=== PATIENT | female | born 1955 | race Caucasian/White ===

== ENCOUNTER 2018-07-27 15:56 | Observation (INO) | payer BC, OTHER ==
--- NOTE | 2018-07-27 16:11 | ERPHSYRPT ---
- History of Present Illness Time Seen by Provider: 07/27/18 16:06 Historian: patient Exam Limitations: no limitations Physician History: The patient is a 62-year-old female complaining of a sudden onset of chest pressure on the left side and left arm tingly feeling that began 20 minutes ago. She had significant chest pressure but now it seems to have dissipated completely. And she states "I'm getting the feeling back in my hand again". She was nauseated. She was slightly short of breath. She denies cough or chills. She has quit smoking. She states she had a heart attack 5 or 6 years ago. She no longer takes any of her prescription medicines because she does not have insurance. She has no local doctor. Her past medical history is significant for CAD, NH, HTN, high cholesterol, and asthma. Timing/Duration: today (20 mins ago) Activities at Onset: rest Quality: pressure Location: substernal Chest Pain Radiation: arm (left) Severity of Pain-Max: moderate Severity of Pain-Current: mild Modifying Factors: Improves With: nothing Associated Symptoms: nausea, shortness of breath, No vomiting Prior Chest Pain/Cardiac Workup: heart attack Nitro Today/Relief: 0.4 mg x 1, provided by ED Aspirin Treatment Today: 81 mg x 4, provided by ED Allergies/Adverse Reactions: codeine Allergy (Mild, Verified 07/24/14 13:52) Itching Home Medications: No Reportable Medications [No Reported Medications] 07/27/18 [History] Hx Tetanus, Diphtheria Vaccination/Date Given: No Hx Influenza Vaccination/Date Given: Yes Hx Pneumococcal Vaccination/Date Given: No - Review of Systems Constitutional: No Fever, No Chills Eyes: No Symptoms Ears, Nose, & Throat: No Symptoms Respiratory: Dyspnea, No Cough Cardiac: Chest Pain Abdominal/Gastrointestinal: Nausea, No Vomiting Genitourinary Symptoms: No Dysuria Musculoskeletal: No Back Pain, No Neck Pain Skin: No Rash Neurological: No Dizziness, No Focal Weakness, No Sensory Changes Psychological: No Symptoms Endocrine: No Symptoms Hematologic/Lymphatic: No Symptoms Immunological/Allergic: No Symptoms All Other Systems: Reviewed and Negative - Past Medical History Pertinent Past Medical History: Yes Cardiac History: Myocardial Infarction (NH) Respiratory History: Asthma Endocrine Medical History: Hypothyroidism - Past Surgical History Past Surgical History: Yes Gastrointestinal: Cholecystectomy Female Surgical History: Tubal Ligation - Social History Smoking Status: Former smoker Exposure to second hand smoke: No Drug Use: none Patient Lives Alone: No - Nursing Vital Signs Nursing Vital Signs: Initial Vital Signs Temperature 97.0 F 07/27/18 15:57 Pulse Rate 72 07/27/18 15:57 Respiratory Rate 20 07/27/18 15:57 Blood Pressure 154/111 07/27/18 15:57 O2 Sat by Pulse Oximetry 98 07/27/18 15:57 Pain Scale Pain Intensity 0 - Physical Exam General Appearance: no apparent distress, alert Eye Exam: PERRL/EOMI, eyes nml inspection Ears, Nose, Throat Exam: normal ENT inspection, moist mucous membranes Neck Exam: normal inspection, non-tender, supple, full range of motion Respiratory Exam: normal breath sounds, lungs clear, No respiratory distress Cardiovascular Exam: regular rate/rhythm, normal heart sounds Gastrointestinal/Abdomen Exam: soft, No tenderness, No mass Pelvic Exam: not done Rectal Exam: not done Back Exam: normal inspection, No CVA tenderness, No vertebral tenderness Extremity Exam: normal inspection, normal range of motion Neurologic Exam: alert, oriented x 3, cooperative, normal mood/affect, sensation nml, No motor deficits Skin Exam: normal color, warm, dry SpO2 Interpretation: normal SpO2: 98 Oxygen Delivery: Room Air - Course EKG Interpreted by Me: RATE, Sinus Rhythm, NORMAL AXIS, NORMAL INTERVALS, NORMAL QRS, NORMAL ST-T, Other (no change comp to EKG from 07/24/14.) - Radiology Exams Chest X-ray Interpretation: Interpreted by me, Infiltrates (bibasilar infiltrates; comp 2v chest 08/17/15.) Ordered Tests: Active Orders 24 hr Category Date Time Status Community Resource Consultant STAT Care 07/27/18 16:13 Active Clean Catch Urine Specimen STAT Care 07/27/18 16:12 Active EKG-ER Only STAT Care 07/27/18 16:12 Active IV Insertion STAT Care 07/27/18 16:12 Active Pulse Oximetry (ED) STAT Care 07/27/18 16:12 Active CHEST 2 VIEWS (PA AND LAT) Stat Exams 07/27/18 16:12 Taken CBC W DIFF Stat Lab 07/27/18 16:15 Completed CMP Stat Lab 07/27/18 16:15 Completed D-DIMER QUANTITATION Stat Lab 07/27/18 16:15 Completed NT PRO BNP Stat Lab 07/27/18 16:15 Completed PROTIME WITH INR Stat Lab 07/27/18 16:15 Completed TROPONIN Q3H Lab 07/27/18 16:15 Completed TROPONIN Q3H Lab 07/27/18 19:15 Ordered TROPONIN Q3H Lab 07/27/18 22:15 Ordered TROPONIN Q3H Lab 07/28/18 01:15 Ordered TROPONIN Q3H Lab 07/28/18 04:15 Ordered Urine Triage Profile Stat Lab 07/27/18 16:37 Received Medication Summary Discontinued Medications Generic Name Dose Route Start Last Admin Trade Name Freq PRN Reason Stop Dose Admin Aspirin 324 mg 07/27/18 16:12 07/27/18 16:21 Baby Aspirin 81 Mg Chew PO 07/27/18 16:13 324 mg STAT ONE Administration Aspirin Confirm 07/27/18 16:19 Baby Aspirin 81 Mg Chew Administered 07/27/18 16:20 Dose 324 mg .ROUTE .STK-MED ONE Nitroglycerin 0.4 mg 07/27/18 16:12 07/27/18 16:21 Nitrostat 0.4 Mg (Ed) SL 07/27/18 16:13 0.4 mg STAT ONE Administration Nitroglycerin Confirm 07/27/18 16:20 Nitrostat 0.4 Mg (Ed) Administered 07/27/18 16:21 Dose 0.4 mg SL .STK-MED ONE Ondansetron HCl 4 mg 07/27/18 16:12 07/27/18 16:21 Zofran 4 Mg/2 Ml Vial IV 07/27/18 16:13 4 mg STAT ONE Administration Ondansetron HCl Confirm 07/27/18 16:19 Zofran 4 Mg/2 Ml Vial Administered 07/27/18 16:20 Dose 4 mg .ROUTE .STK-MED ONE Lab/Rad Data: Laboratory Result Diagrams 07/27/18 16:15 07/27/18 16:15 Laboratory Results 07/27/18 07/27/18 07/27/18 Range/Units 16:15 16:15 16:15 WBC (4.0-10.5) K/mm3 RBC (4.1-5.4) M/mm3 Hgb (12.0-16.0) gm/dl Hct (35-47) % MCV (78-100) fl MCH (26-32) pg MCHC (32-36) g/dl RDW (11.5-14.0) % Plt Count (150-450) K/mm3 MPV (6-9.5) fl Gran % (36.0-66.0) % Eos # (Auto) (0-0.5) Absolute Lymphs (auto) (1.0-4.6) Absolute Monos (auto) (0.0-1.3) Lymphocytes % (24.0-44.0) % Monocytes % (0.0-12.0) % Eosinophils % (0.00-5.0) % Basophils % (0.0-0.4) % Absolute Granulocytes (1.4-6.9) Basophils # (0-0.4) PT 11.6 (9.95-12.35) SECONDS INR 1.00 (0.8-3.0) D-Dimer 472 (215-500) ng/mL Sodium 141 (137-145) mmol/L Potassium 3.8 (3.5-5.1) mmol/L Chloride 98 (98-107) mmol/L Carbon Dioxide 30 (22-30) mmol/L Anion Gap 17.3 H (5-15) MEQ/L BUN 12 (7-17) mg/dL Creatinine 1.66 H (0.52-1.04) mg/dL Estimated GFR 33.5 ML/MIN Glucose 105 (74-106) mg/dL Calcium 10.0 (8.4-10.2) mg/dL Total Bilirubin 1.10 (0.2-1.3) mg/dL AST 70 H (14-36) U/L ALT 38 H (0-35) U/L Alkaline Phosphatase 94 (38-126) U/L Troponin I < 0.012 (0.000-0.034) ng/mL NT-Pro-B Natriuret Pep 32.8 (0-900) pg/mL Serum Total Protein 9.1 H (6.3-8.2) g/dL Albumin 5.3 H (3.5-5.0) g/dL 07/27/18 Range/Units 16:15 WBC 9.9 (4.0-10.5) K/mm3 RBC 5.15 (4.1-5.4) M/mm3 Hgb 16.2 H (12.0-16.0) gm/dl Hct 48.2 H (35-47) % MCV 93.6 (78-100) fl MCH 31.4 (26-32) pg MCHC 33.6 (32-36) g/dl RDW 15.7 H (11.5-14.0) % Plt Count 197 (150-450) K/mm3 MPV 11.2 H (6-9.5) fl Gran % 46.2 (36.0-66.0) % Eos # (Auto) 0.16 (0-0.5) Absolute Lymphs (auto) 4.71 H (1.0-4.6) Absolute Monos (auto) 0.41 (0.0-1.3) Lymphocytes % 47.8 H (24.0-44.0) % Monocytes % 4.2 (0.0-12.0) % Eosinophils % 1.6 (0.00-5.0) % Basophils % 0.2 (0.0-0.4) % Absolute Granulocytes 4.55 (1.4-6.9) Basophils # 0.02 (0-0.4) PT (9.95-12.35) SECONDS INR (0.8-3.0) D-Dimer (215-500) ng/mL Sodium (137-145) mmol/L Potassium (3.5-5.1) mmol/L Chloride (98-107) mmol/L Carbon Dioxide (22-30) mmol/L Anion Gap (5-15) MEQ/L BUN (7-17) mg/dL Creatinine (0.52-1.04) mg/dL Estimated GFR ML/MIN Glucose (74-106) mg/dL Calcium (8.4-10.2) mg/dL Total Bilirubin (0.2-1.3) mg/dL AST (14-36) U/L ALT (0-35) U/L Alkaline Phosphatase (38-126) U/L Troponin I (0.000-0.034) ng/mL NT-Pro-B Natriuret Pep (0-900) pg/mL Serum Total Protein (6.3-8.2) g/dL Albumin (3.5-5.0) g/dL - Progress Progress: improved Air Movement: good Progress Note: 07/27/18 17:09 after NG 0.4 mg SL, pt is chest pain free. Blood Culture(s) Obtained: No Antibiotics given: Yes Discussed with : Chetna Will see patient in: hospital (observation) Counseled pt/family regarding: lab results, diagnosis, rad results - Departure Time of Disposition: 17:05 Departure Disposition: Observation (per Dr Basilio) Clinical Impression: Chest pain, Pulmonary infiltrates on CXR Condition: Stable Critical Care Time: No Referrals: FABRICIO GARCIA PA [Primary Care Provider] -
[2018-07-27] MEDS ORDERED: BABY ASPIRIN 81 MG CHEW PO ONE (16:12)
[2018-07-27] MEDS ORDERED: Nitrostat 0.4 MG (ED) SL ONE ×2 (16:12→16:20)
[2018-07-27] MEDS ORDERED: Zofran 4 MG/2 ML VIAL IV ONE (16:12)
[2018-07-27 16:18] LABS: BASOPHIL % 0.2 % (0.0-0.4); Basophil (Absolute #) 0.02 (0-0.4); Eosinophil % 1.6 % (0.00-5.0); Eosinophil (Absolute #) 0.16 (0-0.5); Granulocyte Absolute (ANC) 4.55 (1.4-6.9); Granulocytes % 46.2 % (36.0-66.0); Hematocrit 48.2 % (35-47); Hemoglobin 16.2 gm/dl (12.0-16.0); Lymphocyte (Absolute #) 4.71 (1.0-4.6); Lymphocytes % 47.8 % (24.0-44.0); Mean Cell Volume 93.6 fl (78-100); Mean Corpuscular Hgb Concent. 33.6 g/dl (32-36); Mean Platelet Volume 11.2 fl (6-9.5); Monocyte (Absolute #) 0.41 (0.0-1.3); Monocytes % 4.2 % (0.0-12.0); Platelet Count 197 K/mm3 (150-450); Red Blood Count 5.15 M/mm3 (4.1-5.4); Red Cell Distribution Width 15.7 % (11.5-14.0); White Blood Count 9.9 K/mm3 (4.0-10.5)
[2018-07-27] MEDS ORDERED: Zofran 4 MG/2 ML VIAL ONE (16:19)
[2018-07-27] MEDS ORDERED: BABY ASPIRIN 81 MG CHEW ONE (16:19)
[2018-07-27 16:20] LABS: Mean Corpuscular Hemoglobin 31.4 pg (26-32)
[2018-07-27 16:47] LABS: ALBUMIN 5.3 g/dL (3.5-5.0); ANION GAP 17.3 MEQ/L (5-15); BILIRUBIN,TOTAL 1.1 mg/dL (0.2-1.3); Creatinine 1 1.66 mg/dL (0.52-1.04); NT PRO BNP 32.8 pg/mL (0-900); Potassium 3.8 mmol/L (3.5-5.1); Total Protein 9.1 g/dL (6.3-8.2)
[2018-07-27 16:56] LABS: Amphetamine,Urine NEGATIVE (NEGATIVE); Barbiturate,Urine NEGATIVE (NEGATIVE); Benzodiazepine,Urine NEGATIVE (NEGATIVE); Cocaine,Urine NEGATIVE (NEGATIVE); Methadone,Urine NEGATIVE (NEGATIVE); Opiate,Urine NEGATIVE (NEGATIVE); PCP,Urine NEGATIVE (NEGATIVE); THC,Urine NEGATIVE (NEGATIVE)
[2018-07-27] MEDS ORDERED: ROCEPHIN 1 Gm-D5w 50 ml Bag** 1 G/50 ML IVPB IV STA (17:01)
[2018-07-27] MEDS ORDERED: ROCEPHIN 1 Gm-D5w 50 ml Bag** 1 G/50 ML IVPB IV ONE (17:07)
[2018-07-27] MEDS ORDERED: TYLENOL 325 MG PO PRN (17:41)
[2018-07-27] MEDS ORDERED: MILK OF MAGNESIA 30 ML PO PRN (17:41)
[2018-07-27] MEDS ORDERED: Zofran 4 MG/2 ML VIAL IV PRN (17:41)
[2018-07-27] MEDS ORDERED: Nitrostat 0.4 MG Tablet SL PRN (17:41)
[2018-07-27] MEDS ORDERED: Senokot-S Tablet PO PRN (17:41)
[2018-07-27] MEDS ORDERED: MAALOX ES 30 ML UNIT DOSE PO PRN (17:41)
[2018-07-27] MEDS ORDERED: Zithromax 500 MG/ 250 ML NaCl Premix 500 MG/250 ML IVPB IV ONE (18:37)
--- NOTE | 2018-07-27 22:06 | XRAY ---
Indication: Short of breath and chest pain. Comparison: August 17, 2015. PA/lateral chest demonstrates new right middle lobe and lingular infiltrates versus atelectasis and new small bibasilar effusions. Remaining heart, lungs, and bony thorax unremarkable.
[2018-07-28 06:01] LABS: Risk Ratio 9.2
[2018-07-28 08:05] VITALS: BP 125/81; PULSE 61; O2SAT 95
--- NOTE | 2018-07-28 09:57 | PCM.DCORD ---
- Discharge Discharge Date: 07/28/18 Disposition: Home, Self-Care Prescriptions: No Action No Reportable Medications [No Reported Medications] Additional Instructions: Keep appointment with family doctor on sunday. Follow up with: Provider,Unknown [Primary Care Provider] - 1 Week
[2018-07-28] MEDS ORDERED: Zithromax 500 MG/ 250 ML NaCl Premix 500 MG/250 ML IVPB IV SCH (10:00)
[2018-07-28] MEDS ORDERED: ROCEPHIN 1 Gm-D5w 50 ml Bag** 1 G/50 ML IVPB IV SCH (10:00)
[2018-07-28] MEDS ORDERED: Ecotrin 325 MG PO SCH (10:00)
--- NOTE | 2018-07-31 14:58 | SSS ---
DISCHARGE DIAGNOSES: 1) CHEST PAIN. 2) HYPERLIPIDEMIA. 3) CORONARY ARTERY DISEASE. HISTORY: The patient is a 62 year-old white female who presented to the emergency room with complaints of sudden onset of chest pain on the left side with arm tingling. She reports that the pain by the time she got to the emergency room had pretty much dissipated. She reports that she did have a previous myocardial infarction five years ago. She had a heart cath at [facility] by one of the physician's at [facility] and she reported that nothing needed to be done according to the candy butcher at that time. The patient however has been on medications for the past couple of years as she has had no insurance. She tells me that she does have an appointment to see her primary care physician again here this next week coming up. MEDICATIONS: Again she is on no current medications. ALLERGIES: CODEINE. PHYSICAL EXAMINATION: On initial evaluation in the emergency room her temperature was 97.0F, pulse 72, respiratory rate 20, blood pressure 154/111. O2 saturation 98% on room air. HEENT: Normocephalic, atraumatic. Pupils equal round reactive to light. Extraocular movements intact. Oropharynx is pink and moist. NECK: Supple without lymphadenopathy, thyromegaly or JVD. CHEST: Clear to auscultation. HEART: Regular rate and rhythm without murmurs, rubs or gallops. ABDOMEN: Without palpable masses. EXTREMITIES: Without clubbing, cyanosis or edema. NEUROLOGIC: The patient is alert and oriented x3. HOSPITAL COURSE: The patient was admitted to the hospital to rule out myocardial infarction. Several troponins had all been less than 0.012. She had a lipid panel showing a total cholesterol of 412, HDL 45 and LDL of 287. The patient's CBC was normal with hemoglobin 16.2, white blood cell count 9,900, PLT count 197,000. Her sugar was 105 nonfasting with BUN 12, creatinine 1.66. She had slight elevation in AST of 70 and ALT of 38. D-dimer was 472 which is in the normal range in our facility. International normalized ratio was 1.00. She had urine drug screen which was negative. She had chest x-ray which was abnormal with new right middle lobe lingular infiltrate versus atelectasis and a small bibasilar effusion. Heart, lungs and bony thorax otherwise were normal. Her EKG showed some low voltage but no ST-segment elevation or depression was noted. There was Q-wave inversion in the lateral leads. Again, the patient has reported previous myocardial infarction. With the patient being pain free at this point and all the troponins being negative, the patient is felt to be ready for discharge home again at this point. She was instructed to follow up with her family doctor and to take information with her in regards to the abnormal chest x-ray. As she has had no fever and no elevation in her white count, no productive cough or symptoms otherwise it was felt to be unlikely that there is pneumonia going on. The patient was instructed to be sure she be followed up as an outpatient. She was instructed to take aspirin to take aspirin on a regular basis of 81 mg a day and if she has recurrence of the chest pain to take up to five aspirin at a time and if the pain is unresolved to return to the hospital.
== END 2018-07-28 10:45 | disposition home or self-care (01) ==
LOC: ED 15:56 → MED SURG 17:35
PROVIDERS: ADMIT Family Medicine; ATTEND Family Medicine
DX: R07.9 Chest pain, unspecified (principal); E78.5 Hyperlipidemia, unspecified; I25.10 Atherosclerotic heart disease of native coronary artery without angina pectoris; I25.2 Old myocardial infarction
CPT/HCPCS: 36000; 36415; 71046; 80053; 80061; 80307; 83721; 83880; 84484; 85025; 85379; 85610; 93005; 93041; 93268; 96374; 99285; G0378; J0456; J0696; J2405; A9270-GY